=== PATIENT | male | born 1970 ===

== ENCOUNTER → 2024-05-25 06:18 | Day surgery (SDC) | payer BC, SELFPAY | LOC: GI 06:18 | PROVIDERS: ATTENDING PHYSICIAN Internal Medicine | DX: Z12.11 Encounter for screening for malignant neoplasm of colon (principal); K62.1 Rectal polyp; K64.5 Perianal venous thrombosis | CPT/HCPCS: 45380; 88305 ==

== ENCOUNTER 2025-05-28 21:29 | Emergency (ER) | payer BC, SELFPAY ==
[2025-05-28 21:31] VITALS: BP 150/89
[2025-05-28 23:06] VITALS: BP 134/90; BMI 26.4
[2025-05-29] MEDS: OCUFLOX 1 DROP OPHTH (00:06)
--- NOTE | 2025-05-29 02:01 | ED.SKININJ ---
HPI-Injury
General
Chief Complaint: Eye Problems
Source: patient
Exam Limitations: none
Time Seen by Provider: 05/28/25 22:44
Nursing documentation reviewed up to this point in time: agreed with
History of Present Illness-Injury
Initial Injury comments:
54-year-old male states yesterday his left eye became blurry and irritated and watery. Today he noted a little bit of purulent drainage and the irritation has gotten worse. He denies pain in the eyeball or pain with movement of the eye. He states
it feels like something is 'picking' in his eye
Past History
Past History
ED Past Medical History: Hypercholesterolemia
Review of Systems
Review of Systems
Allergies reviewed?: Yes
All Other Systems: ROS reviewed and negative except as documented in HPI and ROS
Constitutional: Denies fever
EENT: Reports other (Left eye irritation, sensation of foreign body)
ABD/GI: Denies nausea or vomiting
Neurological: Denies headache
Phy Exam
Physical Exam
Physical Exam:
PHYSICAL EXAMINATION:
General: no apparent distress, not acutely ill
Neuro: alert and oriented.
Psychiatric: well kept. interactive and cooperative
Musculoskeletal: Moves with ease
Skin: Warm, pink.
Eye Exam
Eye Exam: PERRL, EOMI (Conjunctiva injected, lid everted no foreign body. Fluorescein stain reveals a moderate-sized corneal abrasion between 6 and 9:00. Small amount of yellowish drainage), globe normal and visual nichols normal
Able to obtain acuity?: Yes
Right 20/: 16
Left 20/: 30
Both 20/: 20
Course
Orders/Labs/Results
Orders:
Orders
05/28/25 22:44
Visual Acuity- Treatment ONCE
05/28/25 23:56
Ofloxacin [Ocuflox] See Dose Instructions OPHTH NOW STA
05/29/25 00:13
Tetracaine HCl [Tetracaine 0.5% Ophthalmic Solution] 1 drop .ROUTE .STK-MED ONE
05/29/25 08:00
Ofloxacin [Ocuflox] See Dose Instructions OPHTH QID
Vital Signs
Initial and Last Documented VS:
Initial Vital Signs
Temp Pulse Resp BP Pulse Ox
98.2 F 77 16 150/89 98
05/28/25 21:31 05/28/25 21:31 05/28/25 21:31 05/28/25 21:31 05/28/25 21:31
Last Documented Vital Signs
Temp Pulse Resp BP Pulse Ox
98 F 67 18 134/90 98
05/28/25 23:06 05/28/25 23:06 05/28/25 23:06 05/28/25 23:06 05/29/25 02:06
MDM/Problems Addressed
Differential Diagnosis Includes:
Conjunctivitis, foreign body, corneal abrasion
MDM/Problems Addressed:
54-year-old male states yesterday his left eye became blurry and irritated and watery. Today he noted a little bit of purulent drainage and the irritation has gotten worse. He denies pain in the eyeball or pain with movement of the eye. He states
it feels like something is 'picking' in his eye
Final diagnosis, moderate size corneal abrasion
Antibiotic eyedrops started and patient discharged with a bottle with instructions
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
*Pulse Oximetry
SaO2: 98
Oxygen Mode of Delivery: Room air
Patient hypoxic: not evaluated
*Critical Care Note
Total Time (30-74mins, 75-104mins- exclusive of procedures): Not Applicable
ED Attending Note
-
Portions of this chart may have been created with voice recognition software.� Occasional wrong word or��sound alike� substitutions may have occurred due to the inherent limitations of voice recognition software.
Discharge Plan
Departure
Patient Disposition: Home (Routine Discharge)
Date of Disposition: 05/28/25
Time of Disposition: 23:56
Patient with high blood pressure during this ER visit?: No
Condition: Good
Discharge Problem:
Abrasion of left cornea
Instructions: Corneal Abrasion (DC), How to Use Eye Drops
Referrals:
Shana German MD [Active, Ophthalmology] - Tomorrow
Wyatt Mckeon MD [Family Provider, Internal Medicine]
Activity Restrictions/Additional Instructions:
As we discussed, apply the Ocuflox drops as follows: 2 drops to the affected eye 4 times a day
Call Dr. Johnson's office tomorrow morning and make an appointment same or next day for follow-up
Tylenol or ibuprofen as needed for discomfort
Interventions
Interventions:
*Risk Screen - Suicide Last Done: 05/28/25 21:33
*General Assessment Last Done: 05/28/25 23:07
*Neglect/Abuse Screening Last Done: 05/28/25 21:33
*ED- Fall Risk Assessment Last Done: 05/28/25 23:07
*ED COVID-19 Vaccine History Last Done: 05/28/25 23:07
*ED Influenza Vaccine History Last Done: 05/28/25 23:07
*Nursing Disposition Last Done: 05/29/25 00:10
Discharge Date and Time
Discharge Date/Time: 05/29/25 00:11
Print Language: NEPALI
== END 2025-05-29 00:11 | disposition home or self-care (01) ==
LOC: EMR 21:29
PROVIDERS: EMERGENCY PHYSICIAN Emergency Medicine; FAMILY PHYSICIAN Internal Medicine
DX: S05.02XA Injury of conjunctiva and corneal abrasion without foreign body, left eye, initial encounter (principal); X58.XXXA Exposure to other specified factors, initial encounter; E78.00 Pure hypercholesterolemia, unspecified
CPT/HCPCS: 99282